=== PATIENT | male | born 1955 | race Caucasian/White ===

== ENCOUNTER 2020-11-09 16:04 | Outpatient (RCR) | payer OTHER, SELFPAY | END 2021-01-22 23:59 | LOC: IMMUN 16:04 | PROVIDERS: Visit Provider Family Medicine | DX: Z23 Encounter for immunization (principal) | CPT/HCPCS: 0001A; 0002A; 91300 ==

== ENCOUNTER → 2023-06-23 | Outpatient (CLI) | payer MEDICARE, SELFPAY ==
--- NOTE | 2023-06-23 09:02 | ART_ITS ---
Reason For Study: Claudication Procedure A bilateral lower extremity continuous wave Doppler with analog waveform analysis,segmental pressures,and ankle brachial indexes with exercise. Left Segmental Pressures Left brachial= 136mmHg. Left thigh = 98mmHg. Left calf = 91mmHg. Left posterior tibial artery = 96mmHg. Left dorsalis pedis artery = 96mmHg. Left digit = 54 mmHg. The left dorsalis pedis waveforms are biphasic. The left posterior tibial artery waveforms are biphasic. Right Segmental Pressures Right brachial= 136mmHg. Right posterior tibial artery = 142mmHg. Right dorsalis pedis artery = 156mmHg. Right digit = 108 mmHg. The right dorsalis pedis waveforms are triphasic. The right posterior tibial artery waveforms are triphasic. Indices The right ankle brachial index by the dorsalis pedis is 1.15. The right ankle brachial index by the posterior tibial artery is 1.04. The right digital-brachial index is 0.79. The right post exercise ankle brachial index is 0.73. The left ankle brachial index by the dorsalis pedis is 0.71. The left ankle brachial index by the posterior tibial artery is 0.71. The left digital-brachial index is 0.40. The left post exercise ankle brachial index is 0.19. VL/Lower Ext Art Exam w/ Exercise Interpretation Summary Right ALBERTO 1.15, normal. TBI and Doppler/PVR waveforms of the right leg normal a t rest. Right lower extremity with abnormal response to exercise and post exercise ALBERTO in the moderate category. Left ALBERTO 0.71, moderate arterial insufficiency. Doppler/PVR waveforms and segme ntal pressures reveal [id number] femoral disease. Left lower extremity with abnormal response to exercise and post exercise ALBERTO i n the critical category. Ordering Physician: Pia Tejeda Referring Physician: Tyron Rivers Performed By: Karolyn Das RVGaudencio
--- NOTE | 2023-06-23 09:02 | CDU_ITS ---
Reason For Study: Right carotid bruit Rt. Velocities/BP Lt. Velocities/BP Prox CCA 93.8/25.6 cm/sec. Prox CCA 110.2/30 cm/sec. Mid CCA 63/17.9 cm/sec. Mid CCA 81.7/21.2 cm/sec. Dist CCA 59.7/19 cm/sec. Dist CCA 71.8/23.4 cm/sec. Prox ICA 68.5/13.5 cm/sec. Prox ICA 67.4/16.8 cm/sec. Mid ICA 100.3/52 cm/sec. Mid ICA 70.7/23.4 cm/sec. Dist ICA 80.6/32.2 cm/sec. Dist ICA 88.3/33.3 cm/sec. Rt. ICA/CCA = 1.59. Lt. ICA/CCA = 1.08. Prox ECA 105.8/22.3 cm/sec. Prox ECA 89.4/17.9 cm/sec. Rt. Vert. 34.4/14.6 cm/sec. Lt. Vert. 44.3/14.6 cm/sec. Right Extracranial There is intimal thickening but no significant atherosclerotic plaque noted in the right common carotid artery. There is homogeneous, irregular atherosclerotic plaque noted in the right internal carotid artery. There is intimal thickening but no significant atherosclerotic plaque noted in the right external carotid artery. Antegrade flow is noted in the right vertebral artery. Left Extracranial There is homogeneous, smooth atherosclerotic plaque noted in the left common carotid artery. There is intimal thickening but no significant atherosclerotic plaque noted in the left internal carotid artery. There is homogeneous, smooth atherosclerotic plaque noted in the left external carotid artery. Antegrade flow is noted in the left vertebral artery. VL/Carotid Duplex Ultrasound Interpretation Summary Mild (<50%) stenosis right extracranial internal carotid. Normal left extracranial internal carotid. Patent and antegrade vertebrals bilaterally. Ordering Physician: Pia Tejeda Referring Physician: Tyron Rivers Performed By: Karolyn Das RVT
== END | disposition home or self-care (01) ==
LOC: CVS 08:59
PROVIDERS: PCP Family Medicine; Referring Provider Physician Assistant; Visit Provider Physician Assistant
DX: R09.89 Other specified symptoms and signs involving the circulatory and respiratory systems (principal); I73.9 Peripheral vascular disease, unspecified
CPT/HCPCS: 93880; 93924

== ENCOUNTER 2023-06-30 06:44 | Outpatient (CLI) | payer MEDICARE, SELFPAY ==
--- NOTE | 2023-06-30 06:52 | CT_ITS ---
STUDY: CTA OF THE ABDOMINAL AORTA AND BILATERAL LOWER EXTREMITIES REASON FOR EXAM: Male, 68 years old. LLE short-distance claudication RADIATION DOSAGE (If Supplied By Facility): CTDIvol = ( 5.36 ) mGy, DLP = ( 933.7 ) mGycm TECHNIQUE: Axial CT angiography multi-detector data acquisition was obtained from the dome of the liver to the level of the ankles following intravenous administration of IV 100mL Isovue-370. Axial images and MIP images were reconstructed from the axial data set. Post-processing of the angiographic images was performed, with multiplanar reformation and 3D reconstruction. Individualized dose optimization techniques were used for this CT. TECHNICAL QUALITY: Good COMPARISON: None. Descriptors of Narrowing: None (0%) Mild (< 50%) Moderate (50-70%) Severe (70-90%) Subtotal/Total Occlusion (90-100%) Non-Evaluable (technically non-diagnostic FINDINGS: Fatty infiltration of the liver. Small retroperitoneal lymphadenopathy. This is within normal limits. Small umbilical hernia. Prostatic calcifications. Abdominal aorta: Mild degree of atherosclerotic plaque formation. No evidence of stenosis. No evidence of aneurysm. Celiac and superior mesenteric arteries: No demonstrated narrowing. Inferior mesenteric artery: No demonstrated narrowing. Right renal artery(arteries): No demonstrated narrowing. Left renal artery(arteries): No demonstrated narrowing. Right common iliac artery: Mild degree of nonstenotic calcific plaques. Right external iliac artery: No demonstrated narrowing. Right internal iliac artery: No demonstrated narrowing. Left common iliac artery: Mild degree of nonstenotic calcific plaques. Left external iliac artery: No demonstrated narrowing. Left internal iliac artery: No demonstrated narrowing. RIGHT LOWER EXTREMITY Right common femoral artery: No demonstrated narrowing. Right profundus femoris: No demonstrated narrowing. Right superficial femoral: No demonstrated narrowing. Right popliteal artery: No demonstrated narrowing. Right tibioperoneal trunk: No demonstrated narrowing. Right anterior tibial artery: No demonstrated narrowing. Right posterior tibial artery: No demonstrated narrowing. Right peroneal artery: No demonstrated narrowing. LEFT LOWER EXTREMITY Left common femoral artery: No demonstrated narrowing. Left profundus femoris: No demonstrated narrowing. Left superficial femoral: Scattered nonstenotic calcific plaque. Left popliteal artery: Minimal nonstenotic calcific plaque. Left tibioperoneal trunk: No demonstrated narrowing. Left anterior tibial artery: No demonstrated narrowing. Left posterior tibial artery: No demonstrated narrowing. Left peroneal artery: Mild nonstenotic calcific plaque at its origin. CT/CTA Abd w/Runoff W/WO Contrast IMPRESSION: No significant abnormality is seen. Electronically Signed: Nicola Taveras MD at 12:33 EST ,
[2023-06-30 07:18] LABS: CREATININE FINGERSTICK 1.1 mg/dL (0.70-1.30); EGFR FINGERSTICK > 60.0000 mL/min (>60)
== END 2023-06-30 23:59 | disposition home or self-care (01) ==
PROVIDERS: Referring Provider Physician Assistant; Visit Provider Physician Assistant
DX: I70.0 Atherosclerosis of aorta (principal); I73.9 Peripheral vascular disease, unspecified; K42.9 Umbilical hernia without obstruction or gangrene; N48.89 Other specified disorders of penis; K76.0 Fatty (change of) liver, not elsewhere classified
CPT/HCPCS: 75635; Q9967

== ENCOUNTER → 2024-06-22 | Outpatient (CLI) | payer MEDICARE, SELFPAY | END | disposition home or self-care (01) | PROVIDERS: PCP Family Medicine; Referring Provider Surgery Trauma Surgery; Visit Provider Surgery Trauma Surgery | DX: I70.212 Atherosclerosis of native arteries of extremities with intermittent claudication, left leg (principal) | CPT/HCPCS: 93924 ==

== ENCOUNTER → 2025-07-20 | Outpatient (CLI) | payer MEDICARE, SELFPAY ==
--- NOTE | 2025-07-20 07:51 | ART_ITS ---
Reason For Study Reason For Study: LLE Claudication Procedure A bilateral lower extremity continuous wave Doppler with analog waveform analysis,segmental pressures,and ankle brachial indexes with exercise. Left Segmental Pressures Left brachial= 128mmHg. Left high thigh = 124mmHg. Left low thigh = 122mmHg. Left calf = 95mmHg. Left posterior tibial artery = 105mmHg. Left dorsalis pedis artery = 91mmHg. Left digit = 66 mmHg. The left posterior tibial artery waveforms are biphasic. The left dorsalis pedis waveforms are biphasic. Right Segmental Pressures Right brachial= 128mmHg. Right posterior tibial artery = 0.70mmHg. Right dorsalis pedis artery = 139mmHg. The right posterior tibial artery waveforms are triphasic. The right dorsalis pedis waveforms are triphasic. Indices The right ankle brachial index by the posterior tibial artery is 1.13. The right ankle brachial index by the dorsalis pedis is 1.09. The right digital-brachial index is 0.70. The right post exercise ankle brachial index is 0.99. The left ankle brachial index by the posterior tibial artery is 0.82. The left ankle brachial index by the dorsalis pedis is 0.71. The left digital-brachial index is 0.52. The left post exercise ankle brachial index is 0.47. VL/Lower Ext Art Exam w/ Exercise Interpretation Summary Right ALBERTO 1,13, normal. Doppler/PVR waveforms of the right leg normal at rest. TBI diminished, pedal/digit disease vs spasm. Right lower extremity exhibits normal response to exercise. Left ALBERTO 0.82, moderate arterial insufficieny. Doppler/PVR waveforms and segmen dexter pressures reveal aorto-iliac, distal SFA/popliteal disease. Left lower extremity with abnormal response to exercise and post exercise ALBERTO i n the severe category. Ordering Physician: Pia Tejeda Referring Physician: Tyron Rivers Performed By: Raz Dey RVT and Student
--- OUTSIDE RECORDS SUMMARY | 2025-07-20 08:14 | XMS RPT_ITS | CCD ---
Author Organization [facility] Care Team Providers Care Plant Controls Specialist Name Role Phone Warner Andre Primary Care Provider Unavailable Primary Care Provider Unavailabl Warner Mathew MD Primary Care Provider Alec Farias MD Primary Care Provider Alec Farias MD Primary Care Provider Tyron Allred DO Primary Care Provider Care Physician, No Primary Primary Care Provider Unavailable Care Physician, No Primary Referring Provider Un available CRISTIAN Tejeda Attending Provider Dr. Tyron Allred Primary Care Provider Dr. Gertrudis Parsons Attending Provider [phone] Alec Farias MD Primary Care Provider TYRON ALLRED Attending Unavailable TYRON ALLRED Referring Unavailable TYRON ALLERD Primary Care Unavailable Pia Tejeda Attending Unavailable Tyron Allred Referring Unavailable Tyron Allred D Primary Care Unavailable Tyron Allred D Primary Care Unavailable Pia Tejeda Referring Unavailable Pia Tejeda Attending Unavailable Medications Current Medications Medication Drug Class(es) Dates Sig (Normalized) Sig (Original) aspirin 81 mg delayed release oral tablet (20 sources) Platelet Aggregation Inhibitor, Nonsteroidal Anti-inflammatory Drug Start: 07-07-2019 take 1 tablet by mouth in the morning aspirin 81 MG EC tablet Take 1 tablet by mouth in the morning. 07/07/2019 Active atorvastatin 40 mg oral tablet (20 sources) HMG-CoA Reductase Inhibitor Start: 03-03-2022 take 1 tablet by mouth in the morning atorvastatin (Lipitor) 40 MG tablet Take 1 tablet by mouth in the morning. 03/03/2022 Active Start: 07-07-2019 take 1 tablet by max th once daily atorvastatin (LIPITOR) 40 MG tablet Take 1 tablet by mouth daily 30 tablet 3 07/07/2019 Active cilostazol 100 mg oral tablet (2 sources) Phosphodiesterase 3 Inhibitor Start: 07-07-2019 take 1 tablet by mouth twice daily cilostazol (PLETAL) 100 MG tablet Take 1 tablet by mouth 2 times daily 60 tablet 3 07/07/2019 Active clopidogrel 75 mg oral tablet (20 sources) P2Y12 Platelet Inhibitor Start: 12-19-2021 take 1 tablet by mouth in the morning clopidogrel (Plavix) 75 MG tablet Take 1 tablet by mouth in the morning. 12/19/2021 Active Start: 07-07-2019 take 1 tablet by max th once daily clopidogrel (PLAVIX) 75 MG tablet Take 1 tablet by mouth daily 30 tablet 3 07/07/2019 Active medical marijuana (2 sources) medical marijuan a Take by mouth as needed. 0 Active Completed/Discontinued Medications Medication Drug Class(es) Dates Sig (Normalized) Sig (Original) Iopamidol (1 source) Radiographic Contrast Agent Start: 07-26-2019 End: 07-26-2019 iopamidol (ISOVUE-370) 76 % injection 100 mL Problems Active Problems Problem Classification Problem Date Documented Date Episodic/Chronic Diabetes mellitus without complication (1 source) Impaired fasting glycemia; Translations: [Impaired fasting glucose] 11-06-2022 Episodic Disorders of lipid metabolism (17 sources) Hyperlipidemia; Translations: [Hyperlipidemia, unspecified] Onset: 12-19-2021 05-30-2022 Chronic Osteoarthritis (19 sources) Arthritis; Translations: [Unspecified osteoarthritis, unspecified site] Onset: 07-06-2019 07-06-2019 Chronic Other circulatory disease (2 sources) Carotid bruit; Translations: [Other specified symptoms and signs involving the circulatory and respiratory systems] 06-16-2023 Episodic Other circulatory disease (2 sources) Other specified symptoms and signs involving the circulatory and respiratory systems; Translations: [Other symptoms involving cardiovascular system] 06-16-2023 Episodic Other lower respiratory disease (5 sources) Lung field abnormal; Translations: [Other nonspecific abnormal finding of lung field] 02-12-2024 Episodic Other screening for suspected conditions (not mental disorders or infectious disease) (4 sources) Patient encounter status; Translations: [Encounter for screening for malignant neoplasm of prostate] 11-06-2022 Episodic Peripheral and visceral atherosclerosis (20 sources) Atherosclerosis of [place] arteries of the extremities; Translations: [Peripheral vascular disease] Onset: 12-20-2021 Chronic Rheumatoid arthritis and related disease (19 sources) 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; Translations: [Systemic disease affecting skin] Onset: 07-06-2019 07-06-2019 Chronic Screening and history of mental health and substance abuse codes (3 sources) Personal history of nicotine dependence; Translations: [Personal history of tobacco use] 06-05-2023 Episodic Past or Other Problems Problem Classification Problem Date Documented Da te Episodic/Chronic Cardiac dysrhythmias (1 source) Palpitations Episodic Other ear and sense organ disorders (19 sources) Tinnitus; Translations: [Tinnitus, unspecified ear] Onset: 07-06-2019 07-06-2019 Episodic Results Test Name Value Interpretation Reference Range Facility MR/Irma 07-21-2024 /[facility] [address] [place] [address] OFFICE VISIT Date of Service: 07/21/24 MR#: [id number] Acct: [id number] Name: MIKY MARSHALL Hillary Rep #: [id number] : 1955 Provider: CRISTIAN Villalba Age/Sex: 69/M Location: [facility] Status: Signed Intake Vital Signs 07/21/24 08:50 Weight: 146 lb BP 142/76 H Blood Pressure Location Lt brachial Position Sitting Respiration 16 Pulse 83 Pulse Source Monitor Temp 98.4 F Temp Source Temporal Pulse Oximetry (%) 95 Oxygen Delivery Method room air Intake Visit Reasons: 1 YR FU Is patient in pain?: Yes Allergies No Known Allergies Allergy (Verified 07/21/24 08:51) Medications ???Medication ???Instructions ???Recorded ???Confirmed ???Type aspirin 81 mg tablet,delayed 81 mg PO DAILY 06/16/23 07/21/24 History release (Adult Aspirin Regimen) atorvastatin 40 mg tablet 40 mg PO DAILY 06/16/23 07/21/24 History clopidogrel 75 mg tablet (Plavix) 75 mg PO DAILY 06/16/23 07/21/24 History Have you fallen in the past year?: No PFSH Medical History Cataract ( 2009) Surgical History H/O hernia repair Family History Other Diabetes Heart disease Hypertension Social History Smoking Status: Former smoker Tobacco: How many years used: 20 HPI HPI HPI: MIKY MARSHALL, is a 69 M who presents to the office today for 1 year follow-up of his PAD with intermittent claudication. He had repeat LEAS on 06/27/24 which showed R ALBERTO 1.1 with triphasic waveforms and mildly decreased post-exercise ALBERTO and L ALBERTO 0.75 with biphasic waveforms and 1 minute exercise ALBERTO 0.32, 5 minutes 0.66. He reports that his symptoms have overall been stable. He will get some RLE fatigue/cramping at about 200 feet, but at this time not significantly limiting his daily activities. These symptoms resolve fairly quickly with rest. He is currently content with his symptomatic control. No acute worsening LLE pain. No wounds. Recall that he does have a R carotid bruit. Carotid duplex in 2022 revealed <50% stenosis bilaterally. ROS General General: Yes weakness; No weight change, appetite, fatigue, colon cancer or breast cancer HEENT HEENT: No difficulty swallowing, eye injury, eye surgery, swollen glands or hoarseness Endo Endocrine: No thyroid disease, diabetes mellitus, thyroid cancer, Hair loss, heat intolerance or cold intolerance Skin Skin: No rash or changing moles Musc Musculoskeletal: Yes arthritis; No back problems, rheumatoid arthritis, gout or joint pain Cardio Cardiovascular: No murmur, pacemaker, heart disease, atrial fibrillation, high blood pressure, heart attack, heart stent, palpitations, shortness of breat with exertion or chest pain Psych Psychiatric: No depression, anxiety or hearing voices Resp Respiratory: No shortness of breath, No sleep apnea, No cough, No COPD, No asthma, No emphysema and No wheezing Gastro Gastrointestinal: No abdominal pain, No nausea or vomiting, No diarrhea, No constipation, No blood in stool, No acid reflux, No hemorrhoids, No ulcers, No gallbladder problem and No black,tarry stools Tyree Hematologic: Yes blood thinners, No blood disorders, No bleeding, No anemia and No blood clots Additional Details: aspirin plavix Neuro Neurologic: No system reviewed and no additional complaints, except as documented, No as per HPI, No abnormal gait, No abnormal hearing, No abnormal movements, No abnormal speech, No behavioral changes , No burning sensations, Yes confusion, No convulsions, No disequilibrium, No dizziness, No localized weakness, No frequent falls, No headache(s), Yes lack of coordination, No loss of vision, Yes memory loss, No numbness, No other visual disturbances, No radicular pain, Yes restless legs, No sensory deficit, No syncope, No tingling, No tremor(s), Yes weakness and No other Exam Const General: cooperative, comfortable and no acute distress Orientation: alert, awake and oriented x3 HENMT Head: normocephalic and atraumatic Ears: hearing grossly normal bilaterally and external ears normal Nose: external nose normal Eyes General: appearance normal, both eyes and all related structures EOM: EOM intact bilaterally Neck Neck: normal visual inspection Carotids: bruit Resp Effort Inspection: normal respiratory effort, able to speak in complete sentences, no audible wheezes, no grunting, not labored, no retractions and no stridor Auscultation: clear to auscultation bilaterally Cardio Rate: regular rate Rhythm: regular rhythm Bruits: carotid bruit on the right Skin General (more content not included)... Normal [facility] CT Chest [facility] 02-14 1. Stable small pleural-based nodules on the right along with a focus of pleural thickening or pleural plaque without change in eight months. Continued annual screening recommended 2. Marked emphysema 3. Atherosclerotic calcifications. Lung-RADS Version 2022 Assessment Categories - for Screening CT Chest Only. Release date: Jun 2022 Category 2 - Benign appearance or behavior - Continue annual screening Perifissural nodule(s) < 10 mm at baseline or new with oval, lentiform or triangular shape Solid nodule(s): < 6 mm at baseline or new < 4 mm Part solid nodule(s): < 6 mm mean diameter at baseline Nonsolid nodule(s) (GGN): < 30 mm OR > 30 mm and unchanged or slowly growing Airway nodule in subsegmental branch Category 3 or 4 nodules unchanged for > 6 months Report Dictated on Electronically Signed By: Vidal Dejesus MD Electronically Signed Date/Time: 02/15/2024 10:29 AM EDT [facility] 1955 [id number] Exam Date/Time: 02/12/2024 07:59 Procedure: CT CHEST WO IV CONTRAST Ordering Provider: ALLRED JOSHUA Reason For Exam: R91.8 CT CHEST WITHOUT CONTRAST: CLINICAL INDICATION: Follow-up for lung nodules. TECHNIQUE: Transaxial sequence through the chest from apices through the bases at 1 mm reconstruction interval. Coronal and sagittal reconstruction images reviewed. Dose reduction was employed with automated exposure control. COMPARISON: CT from 06/05/2023 FINDINGS: Lungs/airways: Paraseptal and centrilobular emphysema is present. There is no new consolidation or atelectasis. Lung nodule(s) with mean diameter as noted on series 6: * Image 138, 5 mm, right upper lobe along the anterior pleural surface without change * Image 229, 3 mm, right lower lobe along the posterior pleural surface without change * There is also a of elongated pleural thickening or plaque in the anterior right mid hemithorax centered on image 146 without change. No new parenchymal or pleural-based nodule is noted. Calcified granuloma is present in the left upper lobe. Apical pleural scarring is noted Pleural spaces: No pleural fluid. Heart/Great vessels: Normal size cardiac chambers. Coronary artery and aorta atherosclerotic calcifications. Mediastinum/Ghazala: No mass or enlarged lymph nodes identified on this non-contrast study. Chest wall and lower neck: No abnormality. Upper abdomen: No abnormality throughout the visualized portions of liver. Visualized portions of the spleen are normal. The adrenals are unremarkable. Osseous structures: No abnormality. [facility] CT Chest WO contrastOrdered By: Vidal Dejesus on 02-15-2024 MY[facility] Work Phone: CT Chest WO contraston 02-11 Radiology Study observation (narrative) Deloris He alth Basophil percentageOrdered B y: Pia Tejeda on 06-30-2023 Creatinine [Mass/Vol] 1.1 mg/dL 0.70-1.30 [facility] No Panel InformationOrdered By: Pia Tejeda on 06-30-2023 Bedside Estimated GFR (eGFR) > 60.0000 mL/min >[address] [facility] [address] Chest for screening WO pr ntraston 06-06-2023 1. Nodules noted in the lungs bilaterally, measuring up to 6 mm. 2. Moderate pulmonary emphysema. 3. Sequela of prior granulomatous disease with pulmonary, mediastinal, and splenic calcifications. LUNG-RADS ASSESSMENT CATEGORY: Lung-RADS Category 3 - Probably benign finding(s) - 6 month follow up. Lung-RADS Version 2022 Assessment Categories - for Screening CT Chest Only. Release date: Jun 2022 Category 0 - Incomplete Part of lungs cannot be evaluated Findings suggestive of an inflammatory or infectious process Category 1 - Negative - Continue annual screening No nodules Nodules with benign characteristics (complete, central, popcorn Ca++) or fat Category 2 - Benign appearance or behavior - Continue annual screening Perifissural nodule(s) < 10 mm at baseline or new with oval, lentiform or triangular shape Solid nodule(s): < 6 mm at baseline or new < 4 mm Part solid nodule(s): < 6 mm mean diameter at baseline Nonsolid nodule(s) (GGN): < 30 mm OR > 30 mm and unchanged or slowly growing Airway nodule in subsegmental branch Category 3 or 4 nodules unchanged for > 6 months Category 3 - Probably benign finding(s) - 6 month follow up Solid nodule(s): 6 to < 8 mm at baseline OR new 4 mm to < 6 mm Part solid nodule(s) 6 mm total diameter with solid component < 6 mm OR new < 6 mm total diameter Nonsolid nodule(s) (GGN) > 30 mm on baseline or new Atypical cyst Category 4a nodule unchanged for 3 months Category 4A - Suspicious - 3 month follow up or PET/CT when >8mm Solid nodule(s): 8 to < 15 mm at baseline OR growing < 8 mm OR new 6 to <8 mm Part solid nodule(s): > 6 mm with solid component > 6 mm to < 8 mm OR with a new or growing < 4 mm solid component Airway nodule - segmental, more proximal than baseline or new Atypical cyst with thick wall or multilocular or changed Category 4B - Suspicious - chest CT with or without contrast, PET/CT and/or tissue sampling depending on the *probability of malignancy and comorbidities. PET/CT may be used when there is a > 8 mm solid component. For new large nodules that develop on an annual repeat screening CT, a [address] may be recommended. Airway nodule growing Solid nodule(s): > 15 mm OR new or growing, and > 8 mm Part solid nodule(s) with: a solid component > 8 mm OR a new or growing > 4mm solid component Atypical cyst with growth Category 4X - Suspicious - (same work up as Category 4B) Category 3 or 4 nodules with additional features or imaging findings that increases the suspicion of malignancy - spiculation, rapid growth or associated lymph node enlargement Modifier to add to Category 0-4: Category S - Clinically or potentially significant non lung cancer related findings NOTES 1. Lung-RADS Category: Each exam should be coded 0-4 based on the nodule with the highest degree of suspicion. 2. Lung-RADS Management: The timing of follow-up imaging is from the date of the exam being interpreted. For example, 12-month screening LDCT for Lung-RADS 2 is from the date of the current exam. Also note that management of category 3 and 4A nodules follows a stepped approach based on follow-up stability or decrease in size. If nodules resolve on follow-up, reclassify according to the most concerning finding. 3. Practice Audit Definitions: A negative screen is defined as categories 1 and 2; a positive screen is defined as categories 3 and 4. A negative screen does not mean that an individual does not have lung cancer. 4. Nodule Measurement: To calculate nodule mean diameter, measure both the long and short axis to one decimal point in mm, and report mean nodule diameter to one decimal point. The long and short axis measurements may be in any plane to reflect the true size of the nodule. Volumes, if obtained, should be reported to the nearest whole number in mm3. 5. Size Thresholds: Apply to nodules at first detection and that enlarge, reaching a higher size category. When a nodule crosses a new size threshold for other Lung-RADS categories, even if not meeting the definition of growth, the nodule should be reclassified based on size and managed accordingly. 6. Growth: An increase in mean diameter size of > 1.5 mm (> 2 mm3) within a 12-month interval. 7. Mxfl-Hmpjvkf-Stn-Kaylin id (Ground-Glass) Nodules: A ground-glass nodule (GGN) that demonstrates growth over multiple screening exams but does not meet the > 1.5 mm threshold increase in size for any 12-month interval may be classified as LungRADS 2 until the nodule meets findings criteria of another category, such as developing a solid component (then manage per partsolid nodule criteria). 8. Xibm-Moppbln-Pclji or Part-Solid Nodules: A solid or part-solid nodule that demonstrates growth over multiple screening exams but does not meet the > 1.5 mm threshold increase in size for any 12-month interval is suspicious and may be classi (more content not included)... [facility] Patient Name: MIKY MARSHALL : 1955 Exam Date/Time: 06/05/2023 08:27 Procedure: CT LUNG SCREENING LOW DOSE Ordering Provider: ALLRED JOSHUA Reason For Exam: z12.2 z87.891 CLINICAL HISTORY: History of tobacco use. This is a screening study for pulmonary nodules. COMPARISON: None Technique: 1 mm low dose helical CT images were obtained of the chest without the use of intravenous contrast. Images were reformatted in coronal and sagittal projections. Dose reduction was employed with automated exposure control. FINDINGS: Pulmonary nodules: *All nodule measurements are mean axial diameter and saved on frias images* In the anterior right upper lung lobe, there is a subpleural nodule measuring approximately 4 mm (series 6 axial image 179). In the posterior medial right lower lung lobe, 3 mm subpleural nodule is noted (series 6 axial image 288). In the left upper lung lobe, 6 mm nodule is noted (series 6 axial image 167). Calcified granulomas noted in the lungs. Airway: Mucous debris is noted in the tracheobronchial airway. Otherwise, the tracheobronchial tree is patent. Lungs: Moderate centrilobular and paraseptal emphysematous changes are noted. Otherwise, no focal consolidation is identified. Pleura: No pleural thickening or effusion. Heart/Great vessels: Normal heart size with no pericardial effusion. There is no significant coronary artery calcification. The aorta is normal in caliber. The pulmonary arteries normal in caliber. Mediastinum/Ghazala: Calcified mediastinal lymph nodes and left hilar lymph nodes are seen. Otherwise, no evidence of adenopathy. Thyroid: Thyroid is normal in appearance. Esophagus: Mild hiatal hernia is present. Visualized Upper Abdomen: Scattered calcifications are noted in the spleen, compatible with sequela of prior granulomatous disease. Otherwise the spleen is normal in size and contour. Chest wall: Unremarkable. Bones: No suspicious osseous lesions. Mild degenerative changes of the thoracic spine are observed. [facility] CT Chest for screening WO co ntrastOrdered By: Andrew Cummings on 06-06-2023 MY[facility] Work Phone: CT Chest for screening WO co ntraston 06-05-2023 Radiology Study observation (narrative) [facility] alth CBC W Auto Differential pane l (Bld)Ordered By: Deyanira Juares on 11-06-2022 Basophils (Bld) [#/Vol] 0.0 10*3/uL 0.0 - 0.2 10*3/uL [facility] Basophils/100 WBC (Bld) 0.3 % 0.0 - 2.0 % [facility] Eosinophils (Bld) [#/Vol] 0.1 10*3/uL 0.0 - 0.5 10*3/uL [facility] Eosinophils/100 WBC (Bld) 1.8 % 1.0 - 6.0 % [facility] Erythrocyte distribution width (RBC) [Ratio] 15.3 % High 11.5 - 14.5 % [facility] Hematocrit (Bld) [Volume fraction] 40.7 % 40.0 - 52.0 % [facility] Hemoglobin (Bld) [Mass/Vol] 13.8 g/dL 13.0 - 18.0 g/dL [facility] Immature granulocytes (Bld) [#/Vol] 0.0 10*3/uL NINF - 0.0 10*3/uL [facility] Immature granulocytes/100 WBC (Bld) 0.4 % High NINF - 0.0 % [facility] Interpretation and review of laboratory results Abnormal [facility] [place] Lymphocytes (Bld) [#/Vol] 3.4 10*3/uL 1.0 - 4.3 10*3/uL [facility] [place] Lymphocytes/100 WBC (Bld) 43.1 % High 20.0 - 40.0 % [facility] MCH (RBC) [Entitic mass] 32.2 pg 26.0 - 34.0 pg [facility] MCHC (RBC) [Mass/Vol] 33.9 % 32.0 - 36.0 % [facility] MCV (RBC) [Entitic vol] 95.1 fL 80.0 - 98.0 fL [facility] Monocytes (Bld) [#/Vol] 0.6 10*3/uL 0.0 - 0.8 10*3/uL [facility] Monocytes/100 WBC (Bld) 7.0 % 2.0 - 10.0 % [facility] Neutrophils (Bld) [#/Vol] 3.7 10*3/uL 1.8 - 7.0 10*3/uL [facility] Neutrophils/100 WBC (Bld) 47.4 % 40.0 - 80.0 % [facility] Platelet mean volume (Bld) [Entitic vol] 9.3 fL 7.4 - 12.4 fL [facility] Comment on above: MPV is a calculated measurement using platelet volume ratio Platelets (Bld) [#/Vol] 198 10*3/uL 140 - 440 10*3/uL [facility] RBC (Bld) [#/Vol] 4.28 10*6/uL Low 4.40 - 5.9 0 10*6/uL [facility] WBC (Bld) [#/Vol] 7.8 10*3/uL 3.6 - 10.7 10*3/uL [facility] Comprehensive metabolic 1998 panelon 11-06-2022 Albumin [Mass/Vol] 4.3 g/dL 3.5 - 5.0 g/dL [facility] ALP [Catalytic activity/Vol] 115 U/L 38 - 126 U/L [facility] ALT [Catalytic activity/Vol] 24 U/L 0 - 49 U/L [facility] Anion gap [Moles/Vol] 7 mmol/L 3 - 13 mmol/L [facility] AST [Catalytic activity/Vol] 28 U/L 15 - 46 U/L [facility] Bilirubin [Mass/Vol] 0.4 mg/dL 0.2 - 1 .3 mg/dL [facility] Calcium [Mass/Vol] 9.1 mg/dL 8.4 - 10. 4 mg/dL [facility] Chloride [Moles/Vol] 108 mmol/L High 98 - 10 7 mmol/L [facility] CO2 [Moles/Vol] 27 mmol/L 22 - 30 mmol/L [facility] Creatinine [Mass/Vol] 1.03 mg/dL 0.66 - 1.25 mg/dL [facility] GFR/1.73 sq M.predicted MDRD (S/P/Bld) [Vol rate/Area] 80.6 mL/min/{1.73_m2} - PINF [facility] Comment on above: Calculation based on the Chronic Kidney Disease Epidemiology Collaboration (CKD-EPI) equation refit without adjustment for race Glucose [Mass/Vol] 102 mg/dL High 70 - 100 mg/dL [facility] Potassium [Moles/Vol] 3.8 mmol/L 3.5 - 5.1 mmol/L [facility] Protein [Mass/Vol] 7.6 g/dL 6.3 - 8.2 g/dL [facility] Sodium [Moles/Vol] 141 mmol/L 135 - 145 mmol/L [facility] Urea nitrogen [Mass/Vol] 12 mg/dL 9 - 20 mg/dL [facility] HbA1c (Bld) [Mass fraction]o n 11-06-2022 Average glucose Estimated from glycated hemoglobin (Bld) [Mass/Vol] 137 mg/dL [facility] HbA1c (Bld) [Mass/Vol] 6.4 % High NINF - 5.7 % [facility] Comment on above: Normal less than 5.7 % Prediabetes 5.7% to 6.4% Diabetes 6.5% or higher --HgbA1C levels may not be accurate in patients who have renal disease, received recent blood transfusions, are anemic, or who have dyshemoglobinemia. Interpretation and review of laboratory results Abnormal [facility] Lipid 1996 panelon 3 Cholesterol [Mass/Vol] 120 mg/dL NINF - 200 mg/dL [facility] [facility] Cholesterol in HDL [Mass/Vol] 32 mg/dL Low 40 - 60 mg/dL [facility] [place] Cholesterol in LDL [Mass/Vol] 63 mg/dL 0 - <100 [facility] Cholesterol.total/Mimi sterol in HDL [Mass ratio] 4 {ratio} [facility] Comment on above: Ref Range: < 3 Low Risk for CHD 3-6 Mod Risk for CHD > 6 High Risk for CHD Triglyceride [Mass/Vol] 127 mg/dL NINF - 150 mg/dL [facility] [place] No Panel Informationon 11-06 Interpretation and review of laboratory results Abnormal [facility] PSA Screeningon 11-06-2022 Interpretation and review of laboratory results Normal [facility] Prostate specific Ag [Mass/Vol] 2.765 ng/mL NINF - 4.000 ng/mL [facility] Testing performed on the [employer] using an immunometric methodology. Results obtained by different methods should not be used interchangeably. [facility] Basic Metabolic Panelon - Anion gap [Moles/Vol] 10 Normal [facility] Comment on above: Performed By: #### M DIFF, TROPN, HEMDF, BMP3, MG3 #### [facility] [address] [place] [address] Calcium [Mass/Vol] 9.4 mg/dL Normal 8.4-10.[address] [facility] Comment on above: Performed By: #### M DIFF, TROPN, HEMDF, BMP3, MG3 #### [facility] [address] [place] [address] CO2 [Moles/Vol] 25 mmol/L Normal 22-30 [facility] Comment on above: Performed By: #### M DIFF, TROPN, HEMDF, BMP3, MG3 #### [facility] [address] [place] [address] Creatinine [Mass/Vol] 1.10 mg/dL Normal 0.52-1.25 [facility] Comment on above: Performed By: #### M DIFF, TROPN, HEMDF, BMP3, MG3 #### [facility] [address] [place] [address] GFR/1.73 sq M predicted among blacks MDRD (S/P/Bld) [Vol rate/Area] mL/min/{1.73_m2} Normal >[address] [facility] Comment on above: Performed By: #### M DIFF, TROPN, HEMDF, BMP3, MG3 #### [facility] [address] [place] [address] GFR/1.73 sq M predicted among non-blacks MDRD (S/P/Bld) [Vol rate/Area] mL/min/{1.73_m2} Normal >[address] [facility] Comment on above: Result Comment: Sour ce- MDRD equation with creatinine calibration to IDMS(NKDEP) eGFR not recommended for drug dose adjustment Performed By: #### M DIFF, TROPN, HEMDF, BMP3, MG3 #### [facility] [address] [place] [address] Glucose [Mass/Vol] 102 mg/dL High 70-[address] [facility] Comment on above: Performed By: #### M DIFF, TROPN, HEMDF, BMP3, MG3 #### [facility] [address] [place] [address] Urea nitrogen [Mass/Vol] 15 mg/dL Normal 7-[address] [facility] Comment on above: Performed By: #### M DIFF, TROPN, HEMDF, BMP3, MG3 #### [facility] [address] [place] [address] Chloride [Moles/Vol] 107 mmol/L Normal 98-107 [facility] Comment on above: Performed By: #### M DIFF, TROPN, HEMDF, BMP3, MG3 #### [facility] [address] [place] [address] Potassium [Moles/Vol] 3.7 mmol/L Normal 3.5-5.1 [facility] Comment on above: Performed By: #### M DIFF, TROPN, HEMDF, BMP3, MG3 #### [facility] [address] [place] [address] Sodium [Moles/Vol] 142 mmol/L Normal 135-[address] [facility] Comment on above: Performed By: #### M DIFF, TROPN, HEMDF, BMP3, MG3 #### [facility] [address] [place] [address] Basic Metabolic PanelOrdered By: Judy Bautista on 07-28-2019 Anion gap [Moles/Vol] 10 mmol/L [facility] Work Phone: Calcium [Mass/Vol] 9.4 mg/dL 8.4 - 10. 4 mg/dL [facility] Work Phone: Chloride [Moles/Vol] 107 mmol/L 98 - 10 7 mmol/L [facility] Work Phone: CO2 [Moles/Vol] 25 mmol/L 22 - 30 mmol/L [facility] Work Phone: Creatinine [Mass/Vol] 1.1 mg/dL 0.52 - 1.25 mg/dL [facility] Work Phone: EGFR IF NonAfrican Cambodian >60.0 >60 mL/min [facility] Work Phone: Comment on above: Source- MDRD equatio n with creatinine calibration to IDMS(NKDEP) eGFR not recommended for drug dose adjustment GFR/1.73 sq M.predicted among blacks MDRD (S/P/Bld) [Vol rate/Area] mL/min/{1.73_m2} >60 mL/min [facility] Work Phone: Glucose [Mass/Vol] 102 mg/dL High 70 - 100 mg/dL [facility] Work Phone: Interpretation and review of laboratory results Abnormal [facility] Work Phone: Potassium [Moles/Vol] 3.7 mmol/L 3.5 - 5.1 mmol/L [facility] Work Phone: Sodium [Moles/Vol] 142 mmol/L 135 - 145 mmol/L [facility] Work Phone: Urea nitrogen [Mass/Vol] 15 mg/dL 7 - 20 mg/dL [facility] Work Phone: CR Chest Portableon 07-28-20 19 CR Chest Portable Patient Name: MIKY MARSHALL Diagnostic Radiology Exam Date/Time 07/28/2019 17:33:56 EST Exam CR Chest Portable Ordering Physician [id number] SUH Accession Number [id number] CPT4 Codes 15008 () Reason For Exam palpitations Report CHEST PORTABLE CLINICAL INDICATION: palpitations TECHNIQUE: Single, portable chest x-ray. COMPARISON: None. FINDINGS: Cardiac and mediastinal silhouette within normal limits. Lungs are hyperinflated, with probable small and calcified granuloma projected over the left midlung. No significant vascular congestion. No focal consolidation or apparent pneumothorax. Bony thorax grossly unremarkable. IMPRESSION: 1. Hyperinflation. 2. No other acute findings. Report Dictated on Final Dictating Physician: MD PICHARDO WENDELL Signed Date and Time: 07/28/2019 6:39 pm Signed by: MD PICHARDO WENDELL Transcribed Date and Time: 07/28/2019 6:40 Normal [facility] Hemogram (CBC) w/Auto DiffOr dered By: Judy Bautista on 07-28-2019 Erythrocyte distribution width (RBC) [Ratio] 14.2 % 11.5 - 14.5 % [facility] Work Phone: Hematocrit (Bld) [Volume fraction] 39.8 % Low 40 - 52 % [facility] Work Phone: Hemoglobin (Bld) [Mass/Vol] 13.3 g/dL 13 - 18 g/dL [facility] Work Phone: Interpretation and review of laboratory results Abnormal [facility] Work Phone: MCH (RBC) [Entitic mass] 32.4 pg 26 - 34 pg [facility] Work Phone: MCHC 33.5 % 32 - 36 % [facility] Work Phone: MCV (RBC) [Entitic vol] 96.8 fL 80 - 98 fL [facility] Work Phone: Platelet mean volume (Bld) [Entitic vol] 6.6 fL Low 7.4 - 10.4 fL [facility] Work Phone: Platelets (Bld) [#/Vol] 213 10*3/uL 140 - 440 10*3/uL [facility] Work Phone: RBC (Bld) [#/Vol] 4.11 10*6/uL Low 4.4 - 5.9 10*6/uL [facility] Work Phone: WBC (Bld) [#/Vol] 6.1 10*3/uL 3.6 - 10.7 10*3/uL [facility] Work Phone: Test Performed by [facility], [address] , [place], [place] [id number] [place] [address] Work Phone: Hemogram w/ Autodiffon 07-28 Erythrocyte distribution width (RBC) [Ratio] 14.2 % Normal 11.5-14.[address] [facility] Comment on above: Performed By: #### M DIFF, TROPN, HEMDF, BMP3, MG3 #### [facility] [address] [place] [address] Hematocrit (Bld) [Volume fraction] 39.8 % Low 40.0-52.[address] [facility] Comment on above: Performed By: #### M DIFF, TROPN, HEMDF, BMP3, MG3 #### [facility] [address] [place] [address] Hemoglobin (Bld) [Mass/Vol] 13.3 g/dL Normal 13.0-18.[address] [facility] Comment on above: Performed By: #### M DIFF, TROPN, HEMDF, BMP3, MG3 #### [facility] [address] [place] [address] MCH (RBC) [Entitic mass] 32.4 pg Normal 26.0-34.[address] [facility] Comment on above: Performed By: #### M DIFF, TROPN, HEMDF, BMP3, MG3 #### [facility] [address] [place] [address] MCHC (RBC) [Mass/Vol] 33.5 % Normal 32.0-36.0 [facility] Comment on above: Performed By: #### M DIFF, TROPN, HEMDF, BMP3, MG3 #### [facility] [address] [place] [address] MCV (RBC) [Entitic vol] 96.8 fL Normal 80.0-98.0 [facility] Comment on above: Performed By: #### M DIFF, TROPN, HEMDF, BMP3, MG3 #### [facility] [address] [place] [address] Platelet mean volume (Bld) [Entitic vol] 6.6 fL Low 7.4-10.[address] [facility] Comment on above: Performed By: #### M DIFF, TROPN, HEMDF, BMP3, MG3 #### [facility] [address] [place] [address] Platelets (Bld) [#/Vol] 213 10*3/uL Normal 140-[address] [facility] Comment on above: Performed By: #### M DIFF, TROPN, HEMDF, BMP3, MG3 #### [facility] [address] [place] [address] RBC (Bld) [#/Vol] 4.11 10*6/uL Low 4.40-5.[address] [facility] Comment on above: Performed By: #### M DIFF, TROPN, HEMDF, BMP3, MG3 #### [facility] [address] [place] [address] WBC (Bld) [#/Vol] 6.1 10*3/uL Normal 3.6-10.[address] [facility] Comment on above: Performed By: #### M DIFF, TROPN, HEMDF, BMP3, MG3 #### [facility] [address] [place] [address] Magnesiumon 07-28-2019 Magnesium [Mass/Vol] 2.0 mg/dL Normal 1.6-2.3 [facility] Comment on above: Performed By: #### M DIFF, TROPN, HEMDF, BMP3, MG3 #### [facility] [address] [place] [address] MagnesiumOrdered By: Judy laughlin on 07-28-2019 Magnesium [Mass/Vol] 2.0 mg/dL 1.6 - 2 .3 mg/dL [facility] Work Phone: Manual Diffon 07-28-2019 Abs Baso Cnt 0.1 10*3/uL Normal 0.0-0.2 [facility] Comment on above: Performed By: #### M DIFF, TROPN, HEMDF, BMP3, MG3 #### [facility] [address] [place] [address] Abs Eosin Cnt 0.1 10*3/uL Normal 0.0-0.5 [facility] Comment on above: Performed By: #### M DIFF, TROPN, HEMDF, BMP3, MG3 #### [facility] [address] [place] [address] Abs Lymph Cnt 2.2 10*3/uL Normal 1.1-4.5 [facility] Comment on above: Performed By: #### M DIFF, TROPN, HEMDF, BMP3, MG3 #### [facility] [address] [place] [address] Abs Monocyte Cnt 0.2 10*3/uL Normal 0.2-1.1 [facility] Comment on above: Performed By: #### M DIFF, TROPN, HEMDF, BMP3, MG3 #### [facility] [address] [place] [address] Abs Neutrophile Cnt 3.5 10*3/uL Normal 2.2-8.2 [facility] Comment on above: Performed By: #### M DIFF, TROPN, HEMDF, BMP3, MG3 #### [facility] [address] [place] [address] Basophils 1 % Normal 0-[address] [facility] Comment on above: Performed By: #### M DIFF, TROPN, HEMDF, BMP3, MG3 #### [facility] [address] [place] [address] Eosinophils 1 % Normal 1-[address] [facility] Comment on above: Performed By: #### M DIFF, TROPN, HEMDF, BMP3, MG3 #### [facility] [address] [place] [address] Lymphocytes 36 % Normal 20-[address] [facility] Comment on above: Performed By: #### M DIFF, TROPN, HEMDF, BMP3, MG3 #### [facility] [address] [place] [address] Macrocytosis Slight Normal [facility] Comment on above: Performed By: #### M DIFF, TROPN, HEMDF, BMP3, MG3 #### [facility] [address] [place] [address] Monocytes 4 % Normal 2-[address] [facility] Comment on above: Performed By: #### M DIFF, TROPN, HEMDF, BMP3, MG3 #### [facility] [address] [place] [address] RBC morphology finding Nom (Bld) ABNORMAL Normal [facility] Comment on above: Performed By: #### M DIFF, TROPN, HEMDF, BMP3, MG3 #### [facility] [address] [place] [address] Seg Neutrophils 58 % Normal 40-80 [facility] Comment on above: Performed By: #### M DIFF, TROPN, HEMDF, BMP3, MG3 #### [facility] [address] [place] [address] Bands 0 % Normal 0-[address] [facility] Comment on above: Performed By: #### M DIFF, TROPN, HEMDF, BMP3, MG3 #### [facility] [address] [place] [address] Cells counted 100 Normal [facility] Comment on above: Performed By: #### M DIFF, TROPN, HEMDF, BMP3, MG3 #### [facility] [address] [place] [address] Manual DifferentialOrdered B y: Judy Bautista on 07-28-2019 Absolute Baso # 0.1 10*3/uL 0 - 0.2 10*3/uL [employer] Work Phone: Absolute Eos # 0.1 10*3/uL 0 - 0.5 10*3/uL [employer] Work Phone: Absolute Lymph # 2.2 10*3/uL 1.1 - 4.5 10*3/uL [employer] Work Phone: Absolute Boundary # 0.2 10*3/uL 0.2 - 1.1 10*3/uL [employer] Work Phone: Absolute Neut # 3.5 10*3/uL 2.2 - 8.2 10*3/uL [employer] Work Phone: Bands 0 % 0 - 3 % [facility] Work Phone: Basophils 1 % 0 - 2 % [facility] Work Phone: Eosinophils 1 % 1 - 6 % [facility] Work Phone: Lymphocytes 36 % 20 - 40 % [facility] Work Phone: Macrocytosis Slight [facility] Work Phone: Monocytes 4 % 2 - 10 % [facility] Work Phone: RBC Morphology ABNORMAL [facility] Work Phone: Seg Neutrophils 58 % 40 - 80 % [facility] Work Phone: TOTAL CELLS COUNTED 100 [facility] Work Phone: Test Performed by [facility], [address] , [place] [address] [employer] Work Phone: No Panel InformationOrdered By: Judy Bautista on 07-28-2019 Test Performed by [facility], [address] , [place] [address] [employer] Work Phone: Troponin Ion 07-28-2019 Troponin I.cardiac [Mass/Vol] ng/mL Normal 0.000-0.034 [facility] Comment on above: Result Comment: . Performed By: #### M DIFF, TROPN, HEMDF, BMP3, MG3 #### [facility] [address] [place] [address] Troponin [id number] By: Judy Bautista on 07-28-2019 Troponin I.cardiac [Mass/Vol] ng/mL 0 - 0.034 ng/mL [employer] Work Phone: Comment on above: . Test Performed by [facility], [address] , [place], [place] [address] [employer] Work Phone: XR CHEST PORTABLEOrdered By: Judy Bautista on 07-28-2019 Patient Name: MIKY MARSHALL ---Diagnostic Radiology--- Exam Date/Time 07/28/2019 17:33:56 EST Exam CR Chest Portable Ordering Physician Ten MarshaSNEHA JUDY Accession Number [id number] CPT4 Codes 46439 () Reason For Exam palpitations Report CHEST PORTABLE CLINICAL INDICATION: palpitations TECHNIQUE: Single, portable chest x-ray. COMPARISON: None. FINDINGS: Cardiac and mediastinal silhouette within normal limits. Lungs are hyperinflated, with probable small and calcified granuloma projected over the left midlung. No significant vascular congestion. No focal consolidation or apparent pneumothorax. Bony thorax grossly unremarkable. IMPRESSION: 1. Hyperinflation. 2. No other acute findings. Report Dictated on Workstation: [email or web address] --- Final --- Dictating Physician: MD PICHARDO WENDELL Signed Date and Time: 07/28/2019 6:39 pm Signed by: MD PICHARDO WENDELL Transcribed Date and Time: 07/28/2019 6:40 [facility] Work Phone: Giacomo, [facility] Incoming Radiology Results From [facility] - 07/28/2019 6:41 PM EST Patient Name: MIKY MARSHALL ---Diagnostic Radiology--- Exam Date/Time 07/28/2019 17:33:56 EST Exam CR Chest Portable Ordering Physician Ten MARTINEZ JUDY Accession Number [id number] CPT4 Codes 00351 () Reason For Exam palpitations Report CHEST PORTABLE CLINICAL INDICATION: palpitations TECHNIQUE: Single, portable chest x-ray. COMPARISON: None. FINDINGS: Cardiac and mediastinal silhouette within normal limits. Lungs are hyperinflated, with probable small and calcified granuloma projected over the left midlung. No significant vascular congestion. No focal consolidation or apparent pneumothorax. Bony thorax grossly unremarkable. IMPRESSION: 1. Hyperinflation. 2. No other acute findings. Report Dictated on Workstation: [email or web address] --- Final --- Dictating Physician: MD PICHARDO WENDELL Signed Date and Time: 07/28/2019 6:39 pm Signed by: MD PICHARDO WENDELL Transcribed Date and Time: 07/28/2019 6:40 [facility] Work Phone: CTA ABDOMINAL AORTA W BILAT RUNOFF W WO CONTRASTOrdered By: Debby Roberto on 07-26-2019 Patient Name: MIKY MARSHALL ---CT--- Exam Date/Time 07/26/2019 08:29:05 EST Exam CTA Abd Aorta + Iliofemoral Ordering Physician ARPIT ROBERTO KELLY L. Accession Number [id number] CPT4 Codes 50027 (), Q9967 (CT ISOVUE 370MG/[id number] &ML&1) Reason For Exam atherosclerosis obliterans Report CTA abdomen and pelvis and bilateral lower extremities with and without contrast HISTORY: Left toe is black and blue Protocol: 1 mm axial images with without intravenous contrast, 3-D rendering performed by il on an workstation The liver, gallbladder, spleen, pancreas, adrenals, and kidneys are normal. No evidence of bowel inflammation or bowel obstruction. No free fluid. Bladder is unremarkable. Nonspecific prostate and seminal vesicle enlargement. The abdominal aorta has a normal caliber. Mild aortic atherosclerosis. High-grade stenosis in the left common iliac artery. Mild stenoses in the bilateral external iliac arteries. Evaluation of the lower extremity arteries are somewhat limited due to motion artifact. The visualized portions of the bilateral femoral arteries are widely patent. The bilateral popliteal arteries and runoff arteries are widely patent. 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 Report Dictated on Workstation: [id number] --- Final --- Dictated: 07/26/2019 8:53 am Dictating Physician: MD CASTANEDA MALAY Signed Date and Time: 07/26/2019 9:04 am Signed by: MD CASTANEDA MALAY Transcribed Date and Time: 07/26/2019 8:53 [facility] Work Phone[facility] - 07/26/2019 9:05 AM EST Patient Name: MIKY MARSHALL ---CT--- Exam Date/Time 07/26/2019 08:29:05 EST Exam CTA Abd Aorta + Iliofemoral Ordering Physician ARPIT ROBERTO KELLY L. Accession Number [id number] CPT4 Codes 85111 (), Q9967 (CT ISOVUE 370MG/[id number] &ML&1) Reason For Exam atherosclerosis obliterans Report CTA abdomen and pelvis and bilateral lower extremities with and without contrast HISTORY: Left toe is black and blue Protocol: 1 mm axial images with without intravenous contrast, 3-D rendering performed by me on an workstation The liver, gallbladder, spleen, pancreas, adrenals, and kidneys are normal. No evidence of bowel inflammation or bowel obstruction. No free fluid. Bladder is unremarkable. Nonspecific prostate and seminal vesicle enlargement. The abdominal aorta has a normal caliber. Mild aortic atherosclerosis. High-grade stenosis in the left common iliac artery. Mild stenoses in the bilateral external iliac arteries. Evaluation of the lower extremity arteries are somewhat limited due to motion artifact. The visualized portions of the bilateral femoral arteries are widely patent. The bilateral popliteal arteries and runoff arteries are widely patent. 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 Report Dictated on Workstation: [id number] --- Final --- Dictated: 07/26/2019 8:53 am Dictating Physician: MD CASTANEDA MALAY Signed Date and Time: 07/26/2019 9:04 am Signed by: MD CASTANEDA MALAY Transcribed Date and Time: 07/26/2019 8:53 [facility] Work Phone: CTA Abd Aorta + Iliofemoralo n 07-26-2019 CTA Abd Aorta + Iliofemoral Patient Name: MIKY MARSHALL CT Exam Date/Time 07/26/2019 08:29:05 EST Exam CTA Abd Aorta + Iliofemoral Ordering Physician ARPIT ROBERTO, DEBBY Marcelo Accession Number [id number] CPT4 Codes 63195 (), Q9967 (CT ISOVUE [id number]) Reason For Exam atherosclerosis obliterans Report CTA abdomen and pelvis and bilateral lower extremities with and without contrast HISTORY: Left toe is black and blue Protocol: 1 mm axial images with without intravenous contrast, 3-D rendering performed by me on an workstation The liver, gallbladder, spleen, pancreas, adrenals, and kidneys are normal. No evidence of bowel inflammation or bowel obstruction. No free fluid. Bladder is unremarkable. Nonspecific prostate and seminal vesicle enlargement. The abdominal aorta has a normal caliber. Mild aortic atherosclerosis. High-grade stenosis in the left common iliac artery. Mild stenoses in the bilateral external iliac arteries. Evaluation of the lower extremity arteries are somewhat limited due to motion artifact. The visualized portions of the bilateral femoral arteries are widely patent. The bilateral popliteal arteries and runoff arteries are widely patent. 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 Report Dictated on Workstation: [email or web address] Final Dictated: 07/26/2019 8:53 am Dictating Physician: MD CASTANEDA MALAY Signed Date and Time: 07/26/2019 9:04 am Signed by: MD CASTANEDA MALAY Transcribed Date and Time: 07/26/2019 8:[address] [facility] VL ARTERIAL PVR LOWER W EXER CISMarshaon 07-06-2019 [facility] Multilevel Lower Extremity Arterial Evaluation with Exercise Ordering Physician: Warner Andre [employer] Architect: Heidy Sesay RVT Interpreting Physician: Gertrudis Parsons Location: [facility] Indications: PVD. Pt presents with purple discoloration in left great toe with associated pain. Conclusions 1. ALBERTO, PVR/digit waveforms of the right leg normal at rest. TBI diminished, small vessel disease vs spasm 2. Left ALBERTO demonstrates severe arterial insufficiency at rest. PVR/digit waveforms and segmental pressures reveal aorto-iliac disease History: Risk factors: Current tobacco use. Study data: Lower extremity multilevel physiologic evaluation with exercise. Pressure measurement and pulse volume recording. Location: Vascular laboratory. Procedure: A vascular evaluation was performed with the patient in the supine position. Images were obtained using a [employer] 2100 vascular ultrasound machine. An exercise arterial exam was performed with exercise on a treadmill. Pt walked on treadmill at 1.2 mph at a 10% grade x 4.0 mins. At 2.0 mins., pt complained of discomfort, turning to pain, in and around left calf.. Pt had to stop walking at 4.0 mins., due to this pain. Pre and post exercise measurements were recorded. Physiologic examination: Due to inadequate waveform, left toe pressure not obtained. Arterial pressure indices: + +------ ---------+ -+ +-- + +Location +Pressure +Index +Pressure (POST +Index (POST + + +(REST)* +(REST) +STRESS) +STRESS) + + +------ ---------+ -+ +-- + +R brachial +136 + +------- --------+ -+ + +------ ---------+ -+ +-- + +R high thigh+156 +1.05 + +--- ---------+ + +------ ---------+ -+ +-- + +R low thigh +161 +1.09 + +--- ---------+ + +------ ---------+ -+ +-- + +R calf +134 +0.91 + +--- ---------+ + +------ ---------+ -+ +-- + +R DP +152 +1.03 + +--- ---------+ + +------ ---------+ -+ +-- + +R PT +153 +1.03 +159 +1.05 + + +------ ---------+ -+ +-- + +R great toe +95 +0.64 + +--- ---------+ + +------ ---------+ -+ +-- + +L brachial +148 + +152 + + + +------ ---------+ -+ +-- + +L high thigh+101 +0.68 + +--- ---------+ + +------ ---------+ -+ +-- + +L low thigh +93 +0.63 + +--- ---------+ + +------ ---------+ -+ +-- + +L calf +92 +0.62 + +--- ---------+ + +------ ---------+ -+ +-- + +L DP +81 +0.55 +32 +0.21 + + +------ ---------+ -+ +-- + +L PT +60 +0.41 + +--- ---------+ + +------ ---------+ -+ +-- + Prepared and electronically signed by Gertrudis Parsons 07/06/2019 13:22 [facility] [place] [place] [facility] Results From [facility] - 07/06/2019 1:22 PM EST [facility] Multilevel Lower Extremity Arterial Evaluation with Exercise Ordering Physician: Warner Andre [employer] Architect: Heidy Sesay Gaudencio Interpreting Physician: Gertrudis Parsons Location: [facility] Indications: PVD. Pt presents with purple discoloration in left great toe with associated pain. Conclusions 1. ALBERTO, PVR/digit waveforms of the right leg normal at rest. TBI diminished, small vessel disease vs spasm 2. Left ALBERTO demonstrates severe arterial insufficiency at rest. PVR/digit waveforms and segmental pressures reveal aorto-iliac disease History: Risk factors: Current tobacco use. Study data: Lower extremity multilevel physiologic evaluation with exercise. Pressure measurement and pulse volume recording. Location: Vascular laboratory. Procedure: A vascular evaluation was performed with the patient in the supine position. Images were obtained using a Fashfix 2100 vascular ultrasound machine. An exercise arterial exam was performed with exercise on a treadmill. Pt walked on treadmill at 1.2 mph at a 10% grade x 4.0 mins. At 2.0 mins., pt complained of discomfort, turning to pain, in and around left calf.. Pt had to stop walking at 4.0 mins., due to this pain. Pre and post exercise measurements were recorded. Physiologic examination: Due to inadequate waveform, left toe pressure not obtained. Arterial pressure indices: + +------ ---------+ -+ +-- + +Location +Pressure +Index +Pressure (POST +Index (POST + + +(REST)* +(REST) +STRESS) +STRESS) + + +------ ---------+ -+ +-- + +R brachial +136 + +------- --------+ -+ + +------ ---------+ -+ +-- + +R high thigh+156 +1.05 + +--- ---------+ + +------ ---------+ -+ +-- + +R low thigh +161 +1.09 + +--- ---------+ + +------ ---------+ -+ +-- + +R calf +134 +0.91 + +--- ---------+ + +------ ---------+ -+ +-- + +R DP +152 +1.03 + +--- ---------+ + +------ ---------+ -+ +-- + +R PT +153 +1.03 +159 +1.05 + + +------ ---------+ -+ +-- + +R great toe +95 +0.64 + +--- ---------+ + +------ ---------+ -+ +-- + +L brachial +148 + +152 + + + +------ ---------+ -+ +-- + +L high thigh+101 +0.68 + +--- ---------+ + +------ ---------+ -+ +-- + +L low thigh +93 +0.63 + +--- ---------+ + +------ ---------+ -+ +-- + +L calf +92 +0.62 + +--- ---------+ + +------ ---------+ -+ +-- + +L DP +81 +0.55 +32 +0.21 + + +------ ---------+ -+ +-- + +L PT +60 +0.41 + +--- ---------+ + +------ ---------+ -+ +-- + Prepared and electronically signed by Gertrudis Parsons 07/06/2019 13:22 [facility]- [place], [place] VL PVR Arterial Doppler Lowe r w/ Exercison 07-06-2019 VL PVR Arterial Doppler Lower w/ Exercis Patient Name: MIKY MARSHALL Ultrasound Exam Date/Time 07/06/2019 12:45:06 EST Exam VL PVR Arterial Doppler Lwr w/ Exercise Ordering Physician WARNER ANDRE Accession Number [id number] CPT4 Codes 47486 () Reason For Exam pvd Report [facility] Multilevel Lower Extremity Arterial Evaluation with Exercise Ordering Physician: Warner Andre Azure Architect: Heidy Sesay Gaudencio Interpreting Physician: Gertrudis Parsons Location: [facility] Indications: PVD. Pt presents with purple discoloration in left great toe with associated pain. Conclusions 1. ALBERTO, PVR/digit waveforms of the right leg normal at rest. TBI diminished, small vessel disease vs spasm 2. Left ALBERTO demonstrates severe arterial insufficiency at rest. PVR/digit waveforms and segmental pressures reveal aorto-iliac disease History: Risk factors: Current tobacco use. Study data: Lower extremity multilevel physiologic evaluation with exercise. Pressure measurement and pulse volume recording. Location: Vascular laboratory. Procedure: A vascular evaluation was performed with the patient in the supine position. Images were obtained using a Fashfix 2100 vascular ultrasound machine. An exercise arterial exam was performed with exercise on a treadmill. Pt walked on treadmill at 1.2 mph at a 10% grade x 4.0 mins. At 2.0 mins., pt complained of discomfort, turning to pain, in and around left calf.. Pt had to stop walking at 4.0 mins., due to this pain. Pre and post exercise measurements were recorded. Physiologic examination: Due to inadequate waveform, left toe pressure not obtained. Arterial pressure indices: + +------ ---------+ -+ +-- + +Location +Pressure +Index +Pressure (POST +Index (POST + + +(REST)* +(REST) +STRESS) +STRESS) + + +------ ---------+ -+ +-- + +R brachial +136 + +------- --------+ -+ + +------ ---------+ -+ +-- + +R high thigh+156 +1.05 + +--- ---------+ + +------ ---------+ -+ +-- + +R low thigh +161 +1.09 + +--- ---------+ + +------ ---------+ -+ +-- + +R calf +134 +0.91 + +--- ---------+ + +------ ---------+ -+ +-- + +R DP +152 +1.03 + +--- ---------+ + +------ ---------+ -+ +-- + +R PT +153 +1.03 +159 +1.05 + + +------ ---------+ -+ +-- + +R great toe +95 +0.64 + +--- ---------+ + +------ ---------+ -+ +-- + +L brachial +148 + +152 + + + +------ ---------+ -+ +-- + +L high thigh+101 +0.68 + +--- ---------+ + +------ ---------+ -+ +-- + +L low thigh +93 +0.63 + +--- ---------+ + +------ ---------+ -+ +-- + +L calf +92 +0.62 + +--- ---------+ + +------ ---------+ -+ +-- + +L DP +81 +0.55 +32 +0.21 + + +------ ---------+ -+ +-- + +L PT +60 +0.41 + +--- ---------+ + +------ ---------+ -+ +-- + Prepared and electronically signed by Gertrudis Parsons 07/06/2019 13:22 Final Dictated: 07/06/2019 1:22 pm Dictating Physician: GERTRUDIS PARSONS Signed Date and Time: 07/06/2019 1:22 pm Signed by: GERTRUDIS PARSONS [facility] Otheron 12-06-2009 CONVERTED CLINICAL HISTORY OPERATIVE PROCEDURE: Rt inguinal hernia repair with mesh CLINICAL INFORMATION: Rt ing hernia [facility] CONVERTED ELECTRONIC SIGNATURE DANELLE GUARDADO M.D., PATHOLOGIST (Electronic signature on file) Final Signed Out: 12/06/2009 16:37 [facility] CONVERTED FINAL DIAGNOSIS FINAL DIAGNOSIS: A) MASS OF RIGHT INGUINAL REGION, EXCISION - LOBULATED MATURE ADIPOSE TISSUE COMPATIBLE WITH LIPOMA. B) TISSUE FROM RIGHT INGUINAL REGION, EXCISION - FIBROUS-WALL SAC COMPATIBLE WITH HERNIA SAC. SPECIMEN: (A) LIPOMA (B) HERNIA SAC [facility] CONVERTED GROSS DESCRIPTION GROSS DESCRIPTION: Lipoma rt ing area A) Specimen A is labeled lipoma right inguinal area. Received is a portion of lobulated, yellow adipose tissue with a thin rim of pink-white fibrous tissue measuring 3 x 1 x 1 cm. A account retention representative sample is submitted in cassette A. Hernia sac right inguinal area B) Specimen B is labeled hernia sac right inguinal area. Received are portions of membranous, pink-jin fibrous tissue measuring 2 x 2 x 1 cm in aggregate. A account retention representative sample is submitted in cassette B. EAC/SMS/lrs MICROSCOPIC DESCRIPTION: Slides reviewed. AP/lrs [facility] CONVERTED ORDERING PROVIDER Ordering Provider: AMANDA POWELL [facility] Vital Signs Date Time Vital Sign Value Performing Clinician Faci lity 06-16-2023 10:30-0400 Body temperature 98.4 [degF] No Primary Care Physician [facility] 06-16-2023 10:30-0400 Body weight 66.67 kg No Primary Care Physician [facility] 06-16-2023 10:30-0400 Diastolic blood pressure 80 mm[Hg] No Primary Care Physician [facility] 06-16-2023 10:30-0400 Heart rate 76 /min No Primary Care Physician [facility] 06-16-2023 10:30-0400 Respiratory rate 16 /min No Primary Care Physician [facility] 06-16-2023 10:30-0400 SaO2% (BldA) [Mass fraction] 98 % No Primary Care Physician [facility] 06-16-2023 10:30-0400 Systolic blood pressure 142 mm[Hg] No Primary Care Physician [facility] 07-28-2019 18:52-0500 Diastolic blood pressure 83 mm[Hg] Judy Bautista DO Work Phone: [employer] Work Phone: 07-28-2019 18:52-0500 Heart rate 76 /min Judykade Bautista DO Work Phone: [facility] Work Phone: 07-28-2019 18:52-0500 Respiratory rate 18 /min Judy Gogunner DO Work Phone: [employer] Work Phone: 07-28-2019 18:52-0500 SaO2% (BldA) [Mass fraction] 96 % Judy Gokelvinash DO Work Phone: [employer] Work Phone: 07-28-2019 18:52-0500 Systolic blood pressure 126 mm[Hg] Judy Gokelvinash DO Work Phone: [employer] Work Phone: 07-28-2019 16:46-0500 Body temperature 98.2 [degF] Judy Bautista DO Work Phone: [employer] Work Phone: Encounters Encounter Date Encounter Type Care Provider Facility Start: 07-20-2025 ambulatory Tyron Esteban Allred [facility] y:[facility] Start: 04-04-2025 End: 04-04-2025 Telephone encounter Mary Chery RN [facility] Comment on above: Care Coordination (A nnual Lung Screening Reminder/) Start: 02-22-2025 End: 02-22-2025 ambulatory TYRON ALLRED [facility] Start: 02-20-2025 End: 05-22-2025 Transcribe Orders Tyron Montes Phone: [facility] Central Scheduling Comment on above: Other nonspecific ab normal finding of lung field (Primary Dx) Start: 07-21-2024 End: 07-21-2024 ambulatory [facility] Facility:[facility] Start: 02-12-2024 End: 02-12-2024 Subsequent hospital visit by physician Tyron Montes Phone: [facility] Comment on above: Other nonspecific ab normal finding of lung field Start: 01-07-2024 End: 01-07-2024 Subsequent hospital visit by physician Tyron Montes Phone: [facility] Start: 12-22-2023 End: 03-22-2024 Transcribe Orders Tyron Allred DO Work Phone: [facility] Central Scheduling Comment on above: Other nonspecific ab normal finding of lung field (Primary Dx) Start: 12-21-2023 Telephone encounter Leonor Hayes [facility] Comment on above: Care Coordination (L yadira Screening 6 month follow up reminder ) Start: 06-30-2023 End: 06-30-2023 ambulatory No Primary Care Physician [facility] Work Phone: Start: 06-30-2023 End: 06-30-2023 Patient encounter procedure No Primary Care Physician [facility]-Cat Scan, [facility] Work Phone: Start: 06-23-2023 Non-patient / Non-visit No [facility] Physician [facility] Start: 06-23-2023 End: 06-23-2023 ambulatory No Primary Care Physician [facility] Work Phone: Start: 06-23-2023 End: 06-23-2023 Patient encounter procedure No Primary Care Physician [facility]-Cardiovascul ar Services Work Phone: Start: 06-16-2023 End: 06-16-2023 Patient encounter procedure No Primary Care Physician [facility] [facility] Work Phone: Start: 06-05-2023 End: 06-05-2023 Subsequent hospital visit by physician Tyron Allred DO Work Phone: [facility] Comment on above: Encounter for screen ing for malignant neoplasm of respiratory organs; Personal history of nicotine dependence Start: 05-22-2023 Transcribe Orders Tyron Herrera s DO Work Phone: [facility] Central Scheduling Comment on above: Encounter for screen ing for malignant neoplasm of respiratory organs (Primary Dx); Personal history of nicotine dependence Start: 11-06-2022 End: 11-06-2022 ambulatory Tyron Allred DO Work Phone: [facility] Laboratory Comment on above: Mixed hyperlipidemia (Primary Dx); Impaired fasting glucose; Peripheral vascular disease, unspecified (HCC); Encounter for screening for malignant neoplasm of prostate Start: 11-09-2020 End: 11-09-2020 Discharged Recurring [facility]-Immunization s Start: 07-28-2019 End: 07-28-2019 Emergency department patient visit Judy Bautista DO Work Phone: [facility] ED Comment on above: Palpitations (Primar y Dx) Start: 07-26-2019 End: 07-26-2019 Subsequent hospital visit by physician Debby Roberto PA-C Work Phone: [facility] CT Scan Comment on above: Atherosclerosis of n ative arteries of extremities with intermittent claudication, bilateral legs (HCC) Start: 07-06-2019 End: 07-06-2019 Subsequent hospital visit by physician Warner Andre Work Phone: [facility] Vascular Lab Comment on above: Arrived Start: 12-04-2009 End: 12-04-2009 Patient encounter procedure Amanda Powell Work Phone: [facility] Start: 12-04-2009 Results Only Amanda Powell Work Phone: [facility] Procedures Date Procedure Procedure Detail Performing Clinician Start: 06-30-2023 CT of abdominal aort a with contrast No Primary Care Physician Start: 11-06-2022 Comprehensive metabo lic panel Tyron Allred DO Work Phone: Start: 11-06-2022 Lipid panel Tyron Mustapha valladares DO Work Phone: Start: 11-06-2022 Lipid 1996 panel - S art or Plasma [facility] [employer] Start: 07-28-2019 Radiologic exam ches t single view Judy Bautista DO Work Phone: Start: 07-28-2019 Basic metabolic pane l calcium total Judy Kaurash DO Work Phone: Start: 07-28-2019 Manual Differential panel - Blood Judy Kaurash DO Work Phone: Start: 07-26-2019 Cta abdl aorta&bi il iofem w/contrast&postp Debby Roberto PA-C Work Phone: Start: 07-06-2019 N-invas physiologic std lxtr art compl bi Warner Atkins Ira Work Phone: Start: 12-04-2009 CONVERTED SURGICAL PATHOLOGY Amanda Rohan Andre Work Phone: Plan of Treatment Date Care Activity Detail Author Start: 11-07-2027 Lipid panel Lipid Panel [facility] Start: 04-17-2025 COVID-19 Vaccine ( season) COVID-19 Vaccine ( season) [facility] Start: 04-17-2025 Influenza vaccination Influenza Vacc ine (#1) [facility] Start: 02-20-2025 End: 02-20-2026 CT Chest WO contrast CT chest wo IV contrast Imaging Routine Other nonspecific abnormal finding of lung field Expected: 02/20/2025, Expires: 02/20/[address] [facility] Work Phone: Comment on above: Expected: 02/20/2025 , Expires: 02/20/2026 Start: 08-17-2024 Medicare [facility] Annual Wellness Visit Medicare Advantage Annual Wellness Visit [facility] Start: 04-17-2024 COVID-19 Vaccine ( season) COVID-19 Vaccine () [facility] Start: 04-17-2024 Influenza vaccination S [facility] Start: 02-12-2024 Subsequent hospital visit by physician 02/12/2024 7:45 AM EDT Hospital Encounter [facility] [address] [place] [address] Tyron Allred DO [address] [place] [address] [facility] Start: 08-17-2023 Medicare Advantage Annual Wellness Visit Medicare Advantage Annual Wellness Visit [facility] Start: 04-17-2023 COVID-19 Vaccine ( season) COVID-19 Vaccine ( season) [facility] Start: 01-25-2021 COVID-19 Vaccine (3 - Booster for Pfizer series) COVID-19 Vaccine (3 - Booster for Pfizer series) [facility] Start: 01-25-2021 COVID-19 Vaccine (3 - Pfizer series) COVID-19 Vaccine (3 - Pfizer series) [facility] Start: 08-01-2019 End: 08-01-2019 Patient encounter procedure 08/01/2019 Office Visit Vascular Surgery Debby Roberto PA-C [address] [place] [address] [phone] [facility] Start: 07-07-2019 End: 07-07-2019 Office Visit 07/07/2019 Office Visit Vascular Surgery Debby Roberto PA-C [address] [place] [address] [phone] [facility] Start: 04-17-2019 Influenza vaccination Flu vaccine (# 1) [place], [place] Start: 2017 RSV Immunization age d 60 or older (1 - 1-dose 60+ series) RSV Immunization aged 60 or older (1 - 1-dose 60+ series) [facility] Start: 2017 RSV Immunization for Adults (1 - Risk 60-74 years 1-dose series) RSV Immunization for Adults (1 - Risk 60-74 years 1-dose series) [facility] Start: 2007 Colon cancer screen colonoscopy Colon cancer screen colonoscopy [place], [place] Start: 2007 Shingles Vaccine (1 of 2) Shingles Vaccine (1 of 2) [place], [place] Start: 2007 Zoster Vaccines (1 of 2) Zoste r Vaccines (1 of 2) [facility] Start: 1997 Lipid screen Lipid screen [place], [place] Start: 1976 DTaP/Tdap/Td Vaccine s (1 - Tdap) DTaP/Tdap/Td Vaccines (1 - Tdap) [facility] Start: 1975 Hepatitis C screening Hepatitis C Sc reening [facility] Start: 1972 HIV screen HIV screen [place], [place] Start: 1969 Depression Screening Depression Scre ening [facility] Start: 1968 DTaP/Tdap/Td vaccine (1 - Tdap) DTaP/Tdap/Td vaccine (1 - Tdap) [place], [place] Start: 1967 Lipid screen Lipid screen [facility] Work Phone: Start: 1963 Pneumococcal 0-64 ye ars Vaccine (1 of 1 - PPSV23) Pneumococcal 0-64 years Vaccine (1 of 1 - PPSV23) [facility] Work Phone: Start: 1957 Annual wellness visit Medicare Initial Physical (IPPE) [facility] Start: 1957 Hepatitis B Vaccines (1 of 3 - 3-dose series) Hepatitis B Vaccines (1 of 3 - 3-dose series) [facility] Start: 1957 Hepatitis C screen Hepatitis C scree n [place], [place] Start: 1957 Medicare Advantage Annual Wellness Visit (AWV) Medicare Advantage Annual Wellness Visit (AWV) [facility] Start: 1957 Screening for malign ant neoplasm of colon [facility] [employer] End: 06-05-2023 CT Chest for screening WO contrast [facility] [employer] Work Phone: Comment on above: Once for 1 Occurrenc es starting 06/05/2023 until 06/05/2023 End: 02-12-2024 CT Chest WO contrast [facility] [employer] Work Phone: Comment on above: Once for 1 Occurrenc es starting 02/12/2024 until 02/12/2024 CT of abdominal aort a with contrast [facility] EKG 12 Lead - Chest Pain EKG 12 Lead - Chest Pain ECG STAT 07/28/2019 5:14 PM EST [facility] Work Phone: OUTSIDE PROCEDURE SCAN OUTSIDE P ROCEDURE SCAN Procedures Ordered: 11/06/[address] [facility] Comment on above: Ordered: 11/06/2022 OUTSIDE PROCEDURE SCAN OUTSIDE P ROCEDURE SCAN Procedures Ordered: 06/04/[address] [facility] Comment on above: Ordered: 06/04/2023 OUTSIDE PROCEDURE SCAN OUTSIDE P ROCEDURE SCAN Procedures Ordered: 01/06/[address] [facility] Comment on above: Ordered: 01/06/2024 Immunizations Immunization Date Immunization Notes Care Provider Fa cility 05-08-2022 influenza virus vacc ine, unspecified formulation Leonor Hayes [facility] 11-30-2020 Pfizer SARS-CoV-2 Vaccination [facility] 11-09-2020 Pfizer SARS-CoV-2 Vaccination [facility] [employer] [facility] Payers Date Payer Category Payer Medicare HMO [facility] MEDICARE ADV ANTAGE [id number] 2025 Medicare [id number] 2024 Self-pay [id number] 2024 Private Health Insurance [id number] 2022 Medicare AETNA MEDICARE A DVANTAGE AETNA MEDICARE [id number] 2022-Present [address] [place] [address] Medicare HMO [id number] [facility] HEALTH PLAN xxxxxxxxxxx 2019-Present [phone] [address] [place] [address] xxxxxxxxxxx [id number] Medicare MEDICARE PART A B [id number] Unknown [id number] Unknown [id number] Unknown [id number] Social History Date Type Detail Facility Start: 07-06-2019 Tobacco smoking stat us [facility] Unknown if ever smoked [employer] Start: 07-06-2019 End: 06-19-2022 Alcohol intake Ex-drinker (finding) [employer] Start: 1955 [facility] Start: 1955 Sex Assigned At Male [facility] Start: 07-07-2019 End: 06-19-2022 Tobacco smoking status NHIS Current every day smoker [facility] Start: 07-07-1999 History of tobacco use Cigarette Smo ker [facility] Start: 07-07-2019 End: 06-19-2022 Cigarettes smoked current (pack per day) - Reported [facility] Work Phone: Start: 06-19-2022 Tobacco use and exposure Smokeless tobacco non-user [facility] Start: 10-27-2022 End: 11-06-2022 Exposure to SARS-CoV-2 (event) Not sure [facility] Start: 06-19-2022 Tobacco use panel [facility] Start: 03-17-2022 Sex Male (finding) [facility] Clinical Notes 12-21-2023 to 04-04-2025 Telephone Encounter - Mary Chery RN - 04/04/2025 10:13 AM EDTTelephone Encounter - Mary Chery RN - 04/04/2025 10:13 AM EDT Note Date & Type Note Facility 04-04-2025 Miscellaneous Notes Formattin g of this note might be different from the original. Reminder letter and order sent to pt to facilitate adherence to annual lung screening. documented in this encounter [facility] 04-04-2025 Telephone encount er Note Reminder letter and order sent to pt to facilitate adherence to annual lung screening. [facility] 01-25-2024 Telephone encount er Note Patient received certified letter in the mail and is calling into reschedule his 6-month follow-up CT chest. Office already in place. Navigator sent message to [facility] scheduling via secure chat and they rescheduled patient for imaging 02/12/2024. [facility] 01-25-2024 Miscellaneous Notes Formattin g of this note might be different from the original. Patient received certified letter in the mail and is calling into reschedule his 6-month follow-up CT chest. Office already in place. Navigator sent message to [facility] scheduling via secure chat and they rescheduled patient for imaging 02/12/2024. Patient was scheduled for CT chest 01/07/24 but no showed. Mailed certified letter, lung nodule materials, and offered to assist with overcoming barriers to care. Mr. Marshall had a lung RADS [address] scan on 06/05/2023. According to our records, he is now due for 6-month follow-up diagnostic low-dose CT chest to monitor his lung nodules. Navigator contacted [facility] scheduling and confirmed no imaging referral in our on-base order system. Sent reminder to ordering provider, Dr. Tyron Allred. Also mailed reminder letter and lung nodule education materials to patient at home address. documented in this encounter [facility] 01-20-2024 Telephone encount er Note Patient was scheduled for CT chest 01/07/24 but no showed. Mailed certified letter, lung nodule materials, and offered to assist with overcoming barriers to care. [facility] 01-20-2024 Miscellaneous Notes Formattin g of this note might be different from the original. Patient was scheduled for CT chest 01/07/24 but no showed. Mailed certified letter, lung nodule materials, and offered to assist with overcoming barriers to care. Mr. Marshall had a lung RADS [address] scan on 06/05/2023. According to our records, he is now due for 6-month follow-up diagnostic low-dose CT chest to monitor his lung nodules. Navigator contacted [facility] scheduling and confirmed no imaging referral in our on-base order system. Sent reminder to ordering provider, Dr. Tyron Allred. Also mailed reminder letter and lung nodule education materials to patient at home address. documented in this encounter [facility] 12-21-2023 Telephone encount er Note error [facility] 12-21-2023 Miscellaneous Notes Formattin g of this note might be different from the original. error documented in this encounter [facility] 12-21-2023 Telephone encount er Note Mr. Marshall had a lung RADS [address] scan on 06/05/2023. According to our records, he is now due for 6-month follow-up diagnostic low-dose CT chest to monitor his lung nodules. Navigator contacted [facility] scheduling and confirmed no imaging referral in our on-base order system. Sent reminder to ordering provider, Dr. Tyron Allred. Also mailed reminder letter and lung nodule education materials to patient at home address. [facility] 12-21-2023 Miscellaneous Notes Formattin g of this note might be different from the original. Mr. Marshall had a lung RADS [address] scan on 06/05/2023. According to our records, he is now due for 6-month follow-up diagnostic low-dose CT chest to monitor his lung nodules. Navigator contacted [facility] scheduling and confirmed no imaging referral in our on-base order system. Sent reminder to ordering provider, Dr. Tyron Allred. Also mailed reminder letter and lung nodule education materials to patient at home address. documented in this encounter [facility] Evaluation note No assessment inform ation available [facility] Work Phone: Evaluation note Diagnosis Atherosclerosis of [place] arteries of extremities with intermittent claudication, bilateral legs (HCC) documented in this encounter [facility] Work Phone: Evaluation note* Diagnosis Palpitations- Primary documented in this encounter [facility] Work Phone: Evaluation note* Diagnosis Mixed hyperlipidemia- Primary Impaired fasting glucose Peripheral vascular disease, unspecified (HCC) Peripheral vascular disease, unspecified Encounter for screening for malignant neoplasm of prostate documented in this encounter [facility]* Diagnosis Encounter for screening for malignant neoplasm of respiratory organs Personal history of nicotine dependence [facility] this encounter [facility] Diagnosis Onset Date Resolution Status Carotid bruit acute Claudication of left lower extremity acute [facility] Work Phone: Evaluation note* Diagnosis Encounter for screening for malignant neoplasm of respiratory organs- Primary Personal history of nicotine dependence Encounter for screening for malignant neoplasm of respiratory organs Personal history of nicotine dependence documented in this encounter [facility]* Diagnosis Other nonspecific abnormal finding of lung field documented in this encounter [facility]* Diagnosis Other nonspecific abnormal finding of lung field- Primary Other nonspecific abnormal finding of lung field documented in this encounter [facility]* Diagnosis Other nonspecific abnormal finding of lung field- Primary [facility] Attachments The following attachments cannot be sent through Care Everywhere. * Palpitations (Syrian) [facility] Advance Directives No Advanced Directives Records FoundDocuments on File Type Date Recorded Patient Press Assistant And Feeder Expl anation Advance Directives and Living Will Power of Space Technologist Documents on File Type Date Recorded Patient Press Assistant And Feeder Expl anation Advance Directives and Living Will Power of Space Technologist Summary Purpose Family History No Family History Records Found Relationship Condition Age at Onset Recorded Date/T nick Not Specified Diabetes mellitus Unknown Cardiac disease Unknown Hypertension Unknown Chief Complaint and Reason for Visit Chief Complaint PFIZER VACCINE Chief Complaint CONSULT-LLE CLAUDICA TION WORSENING OTHER 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 Reason for Visit Carotid bruit Claudication of left lower extremity Chief Complaint CONSULT-LLE CLAUDICA TION WORSENING OTHER 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 [place] [address] Specialty Diagnoses / Procedures Referred By Francisco Javier t Referred To Contact Radiology Diagnoses Encounter for screening for malignant neoplasm of respiratory organs Personal history of nicotine dependence Procedures CT lung screening low dose Tyron Allred DO [address] [place] [address] Referral ID Status Reason Start Date Expiration Date Visits Re quested Visits Authorized [id number] Closed 05/22/2023 11/18/2023 1 1 Specialty Diagnoses / Procedures Referred By Contac t Referred To Contact Radiology Diagnoses Other nonspecific abnormal finding of lung field Procedures CT chest wo IV contrast Tyron Allred DO [address] [place] [address] Referral ID Status Reason Start Date Expiration Date Visits Re quested Visits Authorized [id number] Closed 12/22/2023 12/21/2024 1 1 Additional Source Comments (unrecognized sect ion and content) No Status Records FoundNo Status Records FoundNo Status Records FoundNo Status Records Found INFORMATION SOURCE (unrecogn ized section and content) DATE CREATED AUTHOR 08/02/2019 [facility] DATE CREATED AUTHOR AUTHOR'S ORGANIZ ATION 08/22/2019 [facility] DATE CREATED AUTHOR AUTHOR'S ORGANIZ ATION 03/01/2025 [facility] DATE CREATED AUTHOR AUTHOR'S ORGANIZ ATION 06/28/2025 [facility] Source Comments (unrecognize d section and content) In the event this informatio n is protected by the Federal Confidentiality of Alcohol and Drug Abuse Patient Records regulations: The Federal rules restrict any use of the information to criminally investigate or prosecute any alcohol or drug abuse patient.[facility] Goals (unrecognized section and content) Goals may be documented in a n alternate sectionGoals may be documented in an alternate sectionGoals may be documented in an alternate section Reason for Visit (unrecogniz ed section and content) Reason Comments Irregular Heart Beat Patient states he f eels since started ASA he feels heart fluttering x 1 week Specialty Diagnoses / Procedures Referred By Contac t Referred To Contact Radiology Diagnoses Encounter for screening for malignant neoplasm of respiratory organs Personal history of nicotine dependence Procedures CT lung screening low dose Tyron Allred DO [address] [place] [address] Referral ID Status Reason Start Date Expiration Date Visits Re quested Visits Authorized [id number] Closed 05/22/2023 11/18/2023 1 1 Reason Onset Date Comments Care Coordination 12/21/2023 Lung Screening 6 month follow up reminder Reason Onset Date Comments Error (VOID this visit) 12/21/2023 Specialty Diagnoses / Procedures Referred By Contac t Referred To Contact Radiology Diagnoses Other nonspecific abnormal finding of lung field Procedures CT chest wo IV contrast Tyron Allred DO [address] [place] [address] Referral ID Status Reason Start Date Expiration Date V isits Requested Visits Authorized [id number] Authorized 12/22/2023 12/21/2024 1 1 Referral ID Status Reason Start Date Expiration Date Visits Re quested Visits Authorized [id number] Closed 12/22/2023 12/21/2024 1 1 Reason Onset Date Comments Care Coordination 04/04/2025 Annual Lung Sc reening Reminder Care Teams (unrecognized sec tion and content) Plant Controls Specialist Relationship Specialty Start Date End Date Alec Farias MD [facility] [place] [phone] PCP - General 12/19/21 Plant Controls Specialist Relationship Specialty Start Date End Date Alec Farias MD [place], [place] [phone] PCP - General 12/19/21 Plant Controls Specialist Relationship Specialty Start Date End Date Tyron Allred DO [address] [place] [address] PCP - General Family Medicine 06/03/23 Team Status: Active Member Role Status Dates Dr. Tyron Allred DO Primary Care Provider Active Team Status: Inactive Member Role Status Dates No Primary Care Physician Primary Care Provider, Refer ring Provider Active CRISTIAN Villalba Attending Provider Active Team Status: Active Member Role Status Dates Dr. Tyron Allred DO Primary Care Provider Active Dr. Gertrudis Parsons MD Attending Provider Active Team Status: Inactive Member Role Status Dates CRISTIAN Villalba Attending Provider, Referring Provid er Active Dr. Tyron Allred DO Primary Care Provider Active Team Status: Inactive Member Role Status Dates No Primary Care Physician Primary Care Provider Active CRISTIAN Villalba Attending Provider, Referring Provid er Active Plant Controls Specialist Relationship Specialty Start Date End Date Alec Farias MD [address] [place] [address], [place] [address] PCP - General 12/19/21 06/02/23 Tyron Allred DO [address] [place] [phone] PCP - General Family Medicine 06/03/23 Plant Controls Specialist Relationship Specialty Start Date End Date Tyron Allred DO [address] [place] [address] PCP - General Family Medicine 06/03/23 Plant Controls Specialist Relationship Specialty Start Date End Date Tyron Allred DO [address] [place], [phone] PCP - General Family Medicine 06/03/23 Plant Controls Specialist Relationship Specialty Start Date End Date Tyron Allred DO [address] [place], [phone] PCP - General Family Medicine 06/03/23 Plant Controls Specialist Relationship Specialty Start Date End Date Tyron Allred DO [address] [place], [phone] PCP - General Family Medicine 06/03/23 Plant Controls Specialist Relationship Specialty Start Date End Date Tyron Allred DO [address] [place] [phone] PCP - General Family Medicine 06/03/23 Plant Controls Specialist Relationship Specialty Start Date End Date Tyron Allred DO [address] [place] [phone] PCP - General Family Medicine 06/03/23 Plant Controls Specialist Relationship Specialty Start Date End Date Tyron Allred DO [address] [place] [phone] PCP - General Family Medicine 06/03/23 FOR RECORDS PERTAINING TO PATIENTS WHO ARE OR HAVE BEEN ENROLLED IN A CHEMICAL DEPENDENCY/SUBSTANCEABUSE PROGRAM, SOME INFORMATION MAY BE OMITTED. This clinical summary was aggregated from multiple sources. Caution should be exercised in using it in the provision of clinical care. This summary normalizes information from multiple sources, and as a consequence, information in this document may materially change the coding, format and clinical context of patient data. In addition, data may be omitted in some cases. CLINICAL DECISIONS SHOULD BE BASED ON THE PRIMARY CLINICAL RECORDS. [facility]. provides no warranty or guarantee of the accuracy or completeness of information in this document.
== END | disposition home or self-care (01) ==
LOC: CVS 07:51
PROVIDERS: PCP Family Medicine; Referring Provider Physician Assistant; Visit Provider Physician Assistant
DX: I73.9 Peripheral vascular disease, unspecified (principal)
CPT/HCPCS: 93924